=== PATIENT | female | born 1960 | race Caucasian/White ===

== ENCOUNTER → 2018-10-28 | Outpatient (CLI) | payer SELFPAY ==
--- NOTE | 2018-10-28 16:15 | PCVCIMAG ---
APPROVED REPORT Study performed: 10/28/2018 14:48:52 EXAM: Comprehensive 2D, Doppler, and color-flow Echocardiogram Patient Location: Echo lab Status: routine BSA: 1.71 HR: 88 bpmBP: 140/76 mmHg Rhythm: NSR Other Information Study Quality: Adequate Indications Congestive Heart Failure Diabetes Dyspnea peripheral edema 2D Dimensions IVSd: 13.55 (7-11mm) LVDd: 42.93 mm PWd: 9.87 (7-11mm)Ascending Ao: 32.68 (22-36mm) LVDs: 34.62 (25-40mm) Left Atrium: 32.93 (27-40mm) Aortic Root: 31.00 mm LV Single Plane 4CH: 36.90 % LV Single Plane 2CH: 43.26 % Biplane EF: 40.4 % Volumes Left Atrial Volume (Systole) Single Plane 4CH: 66.25 mLSingle Plane 2CH: 52.60 mL LA ESV Index: 35.00 mL/m2 Aortic Valve AoV Peak Ryan.: 1.35 m/s AO Peak Gr.: 7.24 mmHgLVOT Max P.07 mmHg LVOT Max V: 1.01 m/s Mitral Valve E/A Ratio: 0.8 MV Decel. Time: 174.46 ms MV E Max Ryan.: 1.07 m/s MV A Ryan.: 1.41 m/s IVRT: 103.81 ms Pulmonary Valve PV Peak Ryan.: 0.92 m/sPV Peak Gr.: 3.37 mmHg Pulmonary Vein P Vein S: 0.39 m/sP Vein A: 0.32 m/s P Vein D: 0.45 m/sP Vein A Dur.: 121.1 msec P Vein S/D Ratio: 0.87 Tricuspid Valve TR Peak Ryan.: 3.07 m/s TR Peak Gr.: 37.68 mmHg TV Vmax: 0.50 m/s Left Ventricle The left ventricle is normal size. Mild septal left ventricular hypertrophy. Left ventricular systolic function is moderately decreased. Inferolateral hypokinesis LVEF is 40-45%. Mild diastolic dysfunction is present (impaired relaxation pattern). Right Ventricle The right ventricle is normal size. The right ventricular systolic function is normal. Atria Left atrium is mildly dilated. The right atrium size is normal. Aortic Valve The aortic valve is normal in structure. No aortic regurgitation is present. There is no aortic valvular stenosis. Mitral Valve The mitral valve is normal in structure. Mild mitral regurgitation. No evidence of mitral valve stenosis. Tricuspid Valve The tricuspid valve is normal in structure. Mild to moderate tricuspid regurgitation with PAP of 45 mmHg. Pulmonic Valve The pulmonary valve is normal in structure. There is no pulmonic valvular regurgitation. Great Vessels The aortic root is normal in size. IVC is normal in size and collapses >50% with inspiration. Pericardium Trace pericardial effusion, no tamponade physiology. Large pleural effusion. <Conclusion> Left ventricular systolic function is moderately decreased. Inferolateral hypokinesis LVEF is 40-45%. Mild diastolic dysfunction The aortic valve is normal in structure. No aortic regurgitation or stenosis The mitral valve is normal in structure. Mild mitral regurgitation. Mild to moderate tricuspid regurgitation with pulmonary artery pressure of 45 mmHg. Trace pericardial effusion, no tamponade physiology. Large pleural effusion.
== END | disposition home or self-care (01) ==
LOC: PCVCIMAG 14:58
PROVIDERS: ATTEND Internal Medicine Cardiovascular Disease
DX: I08.1 Rheumatic disorders of both mitral and tricuspid valves (principal); I50.9 Heart failure, unspecified; E11.9 Type 2 diabetes mellitus without complications; R06.09 Other forms of dyspnea; R60.0 Localized edema
CPT/HCPCS: 93306